=== PATIENT | male | born 1995 | race Caucasian/White ===

== ENCOUNTER → 2020-01-13 16:00 | Outpatient (CLI) | payer OTHER, MEDICAID, SELFPAY ==
--- NOTE | 2020-01-13 16:05 | DI.RAD.S_ITS ---
PROCEDURE: XR WRIST RT MIN 3V INDICATIONS: right hand pain TECHNIQUE: 3 views of the wrist were acquired. COMPARISON: None. FINDINGS: Bones: Corticated ossification over the distal tip of the right ulnar styloid process likely representing sequela of remote injury. There is irregular contour of the scaphoid waist with associated sclerosis of the mid scaphoid. Findings may represent sequela of prior age indeterminate injury. There is overlying soft tissue swelling of the dorsal right wrist. No suspicious bony lesions. Soft tissues: No suspicious soft tissue calcifications. IMPRESSION: 1. Mild cortical irregularity of the scaphoid waist with associated osseous sclerosis. Findings may represent age-indeterminate trauma or injury. Consider further evaluation with MRI if there is localizing pain. 2. Chronic appearing ossification involving the distal ulnar styloid process compatible with sequela of remote injury. Dictated by: Karri Pedersen M.D. on 01/13/2020 at 17:10 Approved by: Karri Pedersen M.D. on 01/13/2020 at 17:14
== END ==
PROVIDERS: Referring Provider Registered Nurse; Visit Provider Registered Nurse
DX: M25.531 Pain in right wrist (principal); M79.641 Pain in right hand
CPT/HCPCS: 73110